=== PATIENT | female | born 1960 | race Caucasian/White ===

== ENCOUNTER → 2016-06-22 | Outpatient (CLI) | payer BC ==
--- NOTE | 2016-06-22 12:41 | CT ---
EXAMINATION TYPE: CT abdomen pelvis wo con DATE OF EXAM: 06/22/2016 12:11 PM HISTORY: bowel obstruction, black stool CT DLP: 753 mGycm. Automated Exposure Control for Dose Reduction was Utilized. TECHNIQUE: CT scan of the abdomen and pelvis is performed with oral but without IV contrast. COMPARISON: NONE FINDINGS: Within the limitations of a non-contrast study, the following observations are made. LUNG BASES: No significant abnormality is appreciated. LIVER/GB: Cholecystectomy clips are noted. PANCREAS: No significant abnormality is seen. SPLEEN: No significant abnormality is seen. ADRENALS: No significant abnormality is seen. KIDNEYS: No significant abnormality is seen. BOWEL: A small hiatal hernia is present. The oral contrast reaches level of the rectum. There is no s uspicious small or large bowel dilatation. Normal-appearing appendix is seen from the cecum. GENITAL ORGANS: Uterus is somewhat blunted in appearance, this correlates with history of partial hys terectomy changes described by patient. There are scattered pelvic phleboliths. There are additional phleboliths along course of the bilateral ovarian veins. LYMPH NODES: No greater than 1cm abdominal or pelvic lymph nodes are appreciated. OSSEOUS STRUCTURES: Mild facet degenerative changes in the lower lumbar spine are present. OTHER: There is small fat-containing umbilical hernia. IMPRESSION: No CT evidence to suggest bowel obstruction. No significant acute finding is seen to acco unt for patient's symptoms. Results communicated to ordering physician via telephone at time of dictation as requested. A Document Only message has been documented for Adam Granado DO in the [employer] [facility] Result system on 06/22/2016 12:37 PM, Message ID [id number].
== END | disposition home or self-care (01) ==
LOC: RADCTMAIN 10:25
PROVIDERS: ATTEND Family Medicine
DX: K56.60 Unspecified intestinal obstruction (principal); R10.9 Unspecified abdominal pain
CPT/HCPCS: 74176

== ENCOUNTER 2023-12-28 11:36 | Day surgery (SDC) | payer BC ==
[2023-12-28 12:31] VITALS: TEMP 98.4
[2023-12-28] MEDS: LACTATED RINGERS 1,000 ML BAG IV STA (12:35)
[2023-12-28] MEDS: IV FLUID CONTINUATION 1,000 ML IV ONE (12:35)
[2023-12-28] MEDS ORDERED: LIDOCAINE 1% INJ 10MG/ML (20 ML MDV) ONE (12:37)
[2023-12-28] MEDS ORDERED: PROPOFOL 10 MG/ML 20 ML VIAL IV ONE (12:37)
[2023-12-28 13:55] VITALS: BP 135/91; PULSE 83; RESP 20
--- NOTE | 2024-01-26 11:06 | P.OP ---
Date of Procedure: 12/28/23 Preoperative Diagnosis: gi bleed Postoperative Diagnosis: small gastric ulcer Procedure(s) Performed: EGD/colonoscopy Anesthesia: local Surgeon: Ron Parra Pathology: none sent Condition: stable Disposition: PACU Indications for Procedure: gi bleed Description of Procedure: Patient was brought to the operating suite where a time out was performed, and everyone agreed with the information recited. Next an adult size Olympus scope was used to traverse the mouth, esophagus, stomach to the second portion of the Duodenum. The scope was slowly retracted, looking at the mucosa and a circumferential fashion, and a small ulcer in the antrum was seen with no stigmata of bleeding. The scope was retroflex and no hiatal hernia was observed. Then observed the line which was normal. The scope was retracted out of the esophagus and mouth and tacked. The scopes were changed and was performed. No masses were appreciated and adult size Olympus scope was then used to traverse the anus rectum sigma colon descending: transverse: to the ascending: where the cecum was identified by the appendiceal orifice. The scope was slowly retracted, looking at the mucosa in a [place] fashion and no masses were seen. Patient had a tiny diverticulum in the sigmoid colon. No stigmata of bleeding. The scope was retracted out of the patient rectum intact. The patient tolerated the procedure well and was transported to PACU and stable condition.
== END 2023-12-28 14:17 | disposition home or self-care (01) ==
LOC: ORWHC2ENDO 11:36
PROVIDERS: ATTEND Surgery
DX: K25.4 Chronic or unspecified gastric ulcer with hemorrhage (principal); K31.9 Disease of stomach and duodenum, unspecified; D72.820 Lymphocytosis (symptomatic); D12.2 Benign neoplasm of ascending colon; K57.31 Diverticulosis of large intestine without perforation or abscess with bleeding
CPT/HCPCS: 88305; 88342; 45385; 43239; J2003; J2704